=== PATIENT | female | born 1980 | race Caucasian/White ===

== ENCOUNTER 2017-04-25 06:26 | Emergency (ER) | payer BC ==
[~2017-04-25] VITALS: Ht 170.2 cm; Wt 69.9 kg
[~2017-04-25 06:26] MED LIST: GABA-826 PO; LINA145C PO
[2017-04-25] MEDS ORDERED: SODIUM CHLORIDE FLUSH 10ML SYR IVF ONE (07:00)
[2017-04-25] MEDS ORDERED: SODIUM CHLORIDE 0.9% 1,000ML IVBOLUS ONE (07:00)
[2017-04-25] MEDS ORDERED: MORPHINE SULFATE 4 MG/ML, 1ML IVPush PRN (07:00)
[2017-04-25] MEDS ORDERED: ONDANSETRON 2MG/ML, 2ML IVPush ONE (07:00)
[2017-04-25] MEDS ORDERED: MORPHINE SULFATE 4 MG/ML, 1ML ONE (07:31)
[2017-04-25] MEDS ORDERED: ONDANSETRON 2MG/ML, 2ML ONE (07:31)
[2017-04-25 07:52] LABS: ASPARTATE AMINO TRANSFERASE 18 U/L (15-37); BLOOD UREA NITROGEN 9 mg/dL (7-18)
[2017-04-25] MEDS ORDERED: OMNIPAQUE 350 MG/ML, 100ML BOTTLE ONE (08:55)
[2017-04-25] MEDS ORDERED: HYDROmorphone 1 MG/ML, 1ML ONE (09:43)
[2017-04-25] MEDS ORDERED: HYDROmorphone 1 MG/ML, 1ML IVPush PRN (10:00)
[2017-04-25 11:01] VITALS: BP 115/67
== END 2017-04-25 11:40 | disposition home or self-care (01) ==
LOC: ED 11:30
DX: R10.31 Right lower quadrant pain (principal); R11.2 Nausea with vomiting, unspecified; Z90.49 Acquired absence of other specified parts of digestive tract; Z88.0 Allergy status to penicillin
CPT/HCPCS: 36415; 74177; 76830; 80053; 81001; 83690; 84703; 85025; 96361; 96374; 96375; 99285; J1170; J2405; J7030; Q9967

== ENCOUNTER 2017-05-03 10:35 | Day surgery (SDC) | payer BC ==
[2017-05-02 13:48] LABS: HEMATOCRIT 45.9 % (34.6-47.8); HEMOGLOBIN 15.4 g/dL (11.7-16.4); WHITE BLOOD COUNT 9.8 x10^3/uL (3.4-10)
[~2017-05-03] VITALS: Ht 170.2 cm; Wt 68.1 kg
[~2017-05-03 10:35] MED LIST changes: +BUPIVACAINE/PF 0.25% ONE; +Birth Control PO; +OXYC1TAB7 PO
[2017-05-03] MEDS ORDERED: ACETAMINOPHEN 500 MG TABLET ONE ×2 (11:04→12:39)
[2017-05-03] MEDS ORDERED: LACTATED RINGERS 1,000 ML IV SCH (11:19)
[2017-05-03 11:21] VITALS: BP 134/84
[2017-05-03] MEDS ORDERED: FENTANYL PF 100 MCG/2ML ONE ×5 (12:44→15:40)
[2017-05-03] MEDS ORDERED: MIDAZOLAM 1 MG/ML, 2ML ONE (12:44)
[2017-05-03] MEDS ORDERED: ONDANSETRON 2MG/ML, 2ML IVPush PRN (14:30)
[2017-05-03] MEDS ORDERED: OXYcodone 5 MG/5 ML ORAL.SOL UDC PO PRN (14:30)
[2017-05-03] MEDS ORDERED: LABETALOL 5MG/ML, 20ML IV PRN (14:30)
[2017-05-03] MEDS ORDERED: hydrALAzine 20 MG/ML, 1ML IV PRN (14:30)
[2017-05-03] MEDS ORDERED: MIDAZOLAM 1 MG/ML, 2ML IV PRN (14:30)
[2017-05-03] MEDS ORDERED: MEPERIDINE/PF 25MG/0.5ML IVPush PRN (14:30)
[2017-05-03] MEDS ORDERED: HYDROcodone/APAP 7.5-325MG/15ML UDC PO PRN (14:30)
[2017-05-03] MEDS ORDERED: PROMETHAZINE 25 MG/ML, 1ML IV PRN (14:30)
[2017-05-03] MEDS ORDERED: EPHEDRINE 50 MG/ML, 1ML IVPush PRN (14:30)
[2017-05-03] MEDS ORDERED: HYDROmorphone 1 MG/ML, 1ML IV PRN ×2 (14:30→17:00)
[2017-05-03] MEDS: FENTANYL PF 100 MCG/2ML IV PRN ×3 (15:05→15:50)
[2017-05-03] MEDS ORDERED: OXYcodone 5 MG/5 ML ORAL.SOL UDC ONE (15:09)
[2017-05-03] MEDS ORDERED: MEPERIDINE/PF 25MG/0.5ML ONE (15:16)
[2017-05-03] MEDS ORDERED: PROPOFOL 10 MG/ML, 20ML ONE (16:00)
[2017-05-03] MEDS ORDERED: LABETALOL 5MG/ML 40ML VIAL ONE (16:00)
[2017-05-03] MEDS ORDERED: DEXAMETHASONE 4 MG/ML, 1ML ONE (16:00)
[2017-05-03] MEDS ORDERED: ESMOLOL 100 MG/10 ML ONE (16:00)
[2017-05-03] MEDS ORDERED: ROCURONIUM 10 MG/ML ONE (16:00)
[2017-05-03] MEDS ORDERED: ACETAMINOPHEN 1,000 MG/100 ML IV ONE (16:00)
[2017-05-03] MEDS ORDERED: GLYCOPYRROLATE 0.2MG/1ML ONE (16:00)
[2017-05-03] MEDS ORDERED: NEOSTIGMINE 1 MG/ML, 10ML ONE (16:00)
[2017-05-03] MEDS ORDERED: CEFOTETAN 2 GM ONE (16:00)
[2017-05-03] MEDS ORDERED: HYDROmorphone 2 MG/ML, 1ML ONE (16:49)
== END 2017-05-03 18:30 ==
LOC: OUT 10:35
PROVIDERS: ATTEND Specialist
DX: N80.0 Endometriosis of uterus (principal); Z88.1 Allergy status to other antibiotic agents
CPT/HCPCS: 36415; 52000; 58571; 84703; 85025; 88307; J1100; J1170; J2175; J2250; J2704; J2710; J3010; J3490; J7120; S2900; J0131; S0074

== ENCOUNTER 2020-10-19 14:45 | Emergency (ER) | payer OTHER ==
[~2020-10-19] VITALS: Ht 167.6 cm; Wt 70.7 kg
[~2020-10-19 14:45] MED LIST changes: -BUPIVACAINE/PF 0.25% ONE
[2020-10-19 15:28] LABS: BASOPHILS % (AUTO) 1 % (0-1); EOSINOPHILS % (AUTO) 4 % (1-7); LYMPHOCYTES % (AUTO) 44 % (22-44); MEAN CORPUSCULAR HEMOGLOBIN 30.1 pg (27.0-34.8); MEAN CORPUSCULAR HGB CONC 33.9 g/dL (32.4-35.8); MEAN PLATELET VOLUME 8.4 fL (7.4-10.4); MONOCYTES % (AUTO) 7 % (2-9); NEUTROPHILS % (AUTO) 44 % (42-75); PLATELET COUNT 321 x10^3/uL (130-400); RED BLOOD COUNT 5.08 x10^6/uL (3.82-5.3); RED CELL DISTRIBUTION WIDTH 13.9 % (9.6-15.2)
[2020-10-19 15:30] LABS: MD NO
--- NOTE | 2020-10-19 15:30 | NUR ---
CC OF LEFT LEG NUMBNESS/TINGLING FOR 9 DAYS. PT HAS HISTORY OF HERPES AND STATES HER FLARE UPS HAVE SIMILAR SENSATION BUT GO AWAY WITHIN A FEW DAYS. THE NUMBNESS AND TINGLING BECAME WORSE TODAY. NO SWELLING NOTED, NO TRAUMA. MILD WEAKNESS TO LEFT LEG. PT ABLE TO WALK AND DROVE SELF TO ER.
[2020-10-19 15:33] LABS: ANION GAP 3 mmol/L (5-15); CALCIUM 9.6 mg/dL (8.5-10.1); CHLORIDE 107 mmol/L (98-107)
[2020-10-19 15:34] LABS: CREATININE 0.96 mg/dL (0.55-1.02)
[2020-10-19] MEDS ORDERED: SODIUM CHLORIDE FLUSH 10ML SYR IVF ONE (16:00)
--- NOTE | 2020-10-19 16:28 | NUR ---
BLADDER SCAN 92 MLS.
--- NOTE | 2020-10-19 16:45 | NUR ---
MRI TO COME GET PT IN ABOUT 30 MIN
--- NOTE | 2020-10-19 17:36 | NUR ---
PT TO MRI
[2020-10-19] MEDS ORDERED: GADOTERATE 7.5 MMOL/15 ML SYR ONE (18:16)
--- NOTE | 2020-10-19 18:31 | NUR ---
BACK FROM MRI
[2020-10-19 19:51] VITALS: BP 132/90
== END 2020-10-19 19:53 | disposition home or self-care (01) ==
LOC: ED 16:31
DX: G62.9 Polyneuropathy, unspecified (principal); K59.00 Constipation, unspecified; R33.9 Retention of urine, unspecified; Z90.49 Acquired absence of other specified parts of digestive tract
CPT/HCPCS: 36415; 72158; 80048; 82040; 85025; 99285; A9575

== ENCOUNTER 2021-04-05 19:29 | Emergency (ER) | payer OTHER ==
[~2021-04-05] VITALS: Ht 167.6 cm; Wt 72.2 kg
[2021-04-05 19:34] VITALS: BP 128/86
--- NOTE | 2021-04-05 19:58 | NUR ---
PT AMBULATORY TO ROOM 6 W/ C/O GETTING FISHING HOOK STUCK TO R HAND HAPPENED 1 HOUR AGO. PT ATTEMPTED TO PULL OUT FISHING HOOK W/O SUCCESS. PT RESTING ON GURNEY. PLEITEZ.
[2021-04-05] MEDS ORDERED: LIDOCAINE-MPF 1%, 5ML ONE (20:02)
[2021-04-05] MEDS ORDERED: DIPH,PERTUSS(ACELL),TET VAC/PF 0.5 ML IM-VACC ONE ×2 (20:21→20:30)
[2021-04-05] MEDS ORDERED: LIDOCAINE-MPF 1%, 5ML INFIL ONE (20:30)
== END 2021-04-05 21:29 | disposition home or self-care (01) ==
LOC: ED 20:00
DX: S60.552A Superficial foreign body of left hand, initial encounter (principal); X58.XXXA Exposure to other specified factors, initial encounter; Y93.89 Activity, other specified; Y92.89 Other specified places as the place of occurrence of the external cause; Y99.8 Other external cause status
CPT/HCPCS: 90471; 90715